=== PATIENT | male | born 1975 | race Caucasian/White ===

== ENCOUNTER 2018-10-04 06:25 | Day surgery (SDC) | payer OTHER ==
[~2018-10-04] VITALS: Ht 180.3 cm; Wt 100.7 kg
[~2018-10-04 06:25] MED LIST: CLARITIN10 M2 PO; FLUCONAZOLE200 MG PO
--- NOTE | 2018-10-04 08:05 | NUR ---
10/04/18 0805 Katelynn Gunderson 0800- PT ARRIVES TO PACU, AROUSABLE VOICE. PT REPORTS NO PAIN OR NAUSEA. PT INSTANTLY BACK TO SLEEP. RESP EVEN AND UNLABORED. PT ON 3L VIA NC OF O2, OXYGEN SAT MID 90'S ON THIS.
--- NOTE | 2018-10-04 10:39 | OR ---
[facility] [address], [place] [address] Signed DATE OF OPERATION: 10/04/2018 SURGEON: Consuelo Little MD PREOPERATIVE DIAGNOSES: 1. Brother with a history of Crohn's disease, age 20. 2. Father with colon cancer in his 30s. 3. Irritable bowel syndrome with constipation and diarrhea. 4. Hemorrhoids with intermittent rectal bleeding. 5. Personal history of colonic polyps. POSTOPERATIVE DIAGNOSES: 1. 5 mm polyps at 45, 32 and 25 cm. 2. A biopsy at 25 cm for a sessile lesion. 3. Random cold biopsies in the right transverse and sigmoid colon. 4. Moderate internal and external hemorrhoids. PROCEDURE PERFORMED: Colonoscopy with hot biopsy. ESTIMATED BLOOD LOSS: None. INDICATIONS: Bishop is a 43-year-old gentleman asked to see me for a followup colonoscopy. He explained to me that his brother was diagnosed with Crohn's disease in his 20s and his father developed colon cancer in his 30s. His father ended up with colostomy bag and around age 49 from the colon cancer. Bishop himself has a personal history of irritable bowel syndrome with constipation and diarrhea. He is known to have hemorrhoids and has even had hemorrhoid surgery. Nevertheless, he does have intermittent rectal bleeding. He says he can feel the hemorrhoids externally. He also has a personal history of colonic polyps. He had a colonoscopy at age 28 and age 35. In the office, I gave him a pamphlet on colonoscopy and we looked at that together along with the risks including, but not limited to gas, bloating, crampy abdominal pain, bleeding, perforation, requiring surgery, and missed diagnosis. We also discussed the need for IV conscious sedation. He had expressed understanding and wished to proceed. PROCEDURE NOTE: Bishop was taken into our endoscopy suite and placed in the left lateral decubitus position. He was given 7 mg of Versed and 100 mcg of fentanyl. A digital rectal exam Electronically Signed By: CONSUELO LITTLE MD 10/04/18 1039 PATIENT NAME: BISHOP HALL OPERATIVE REPORT DATE OF : 75 REPORT #: [id number] PHYSICIAN: CONSUELO LITTLE MD PCP: MICHEAL SOTO PAC REPORT IS CONFIDENTIAL AND NOT TO BE RELEASED WITHOUT AUTHORIZATION [facility] [address], [place] [address] Signed was performed and indeed he does have moderately significant external hemorrhoids. They are quite beefy and I am sure they bleed from time to time. He has good sphincter tone. His prostate gland starting to get a little enlarged and indurated. The adult colonoscope was introduced and advanced all the way around into the cecum under direct visualization of camera without difficulty. His prep was good. The scope was slowly withdrawn. We did not enter the terminal ileum. The above-mentioned polyps were easily removed with the help of a hot biopsy forceps. Although his colon looked unremarkable, we went ahead and took random biopsies out of the right transverse and sigmoid colon because of his brother's history of Crohn's disease. We retroflexed the scope in the rectum and he does have moderate internal hemorrhoid columns as well. After this, the gas was suctioned out and the colonoscope removed. Bishop tolerated the procedure quite well. RECOMMENDATIONS: I will see Bishop back in my office in 7 to 14 days to review his results. At this age, I suspect Bishop will need colonoscopy every 5 years. Consuelo Little MD ALB/MODL /[id number] cc: MD Micheal Mondragon PA Copies: CONSUELO LITTLE MD ~ Electronically Signed By: CONSUELO LITTLE MD 10/04/18 1039 PATIENT NAME: BISHOP HALL OPERATIVE REPORT DATE OF : 75 REPORT #: [id number] PHYSICIAN: CONSUELO LITTLE MD PCP: MICHEAL SOTO PAC REPORT IS CONFIDENTIAL AND NOT TO BE RELEASED WITHOUT AUTHORIZATION
--- NOTE | 2018-10-04 12:10 | NUR ---
PT LAYING IN BED, ALERT, ORIENTED AND SUPPORTED BY HIS . HE HAS HAD SCOPES PREVIOUS, SEEMED PREPARED. EXTENDED A BLESSING, WILL FOLLOW NEEDED
== END 2018-10-04 09:17 | disposition home or self-care (01) ==
LOC: DS 06:25 → OPS 06:25 → DS 06:45 → OPS 09:17
PROVIDERS: Colon & Rectal Surgery
PROC: 0DBE8ZZ Excision of Large Intestine, Via Natural or Artificial Opening Endoscopic (ICD-10-PCS; principal; 2018-10-04 06:45)
DX: K63.5 Polyp of colon (principal); K64.8 Other hemorrhoids; K64.4 Residual hemorrhoidal skin tags; K58.2 Mixed irritable bowel syndrome; Z86.010 Personal history of colon polyps; Z80.0 Family history of malignant neoplasm of digestive organs; Z79.899 Other long term (current) drug therapy
CPT/HCPCS: 99153; G0500; J2250; J3010; J7120

== ENCOUNTER 2020-04-22 09:55 | Day surgery (SDC) | payer OTHER ==
[~2020-04-22] VITALS: Ht 180.3 cm; Wt 99.8 kg
--- NOTE | 2020-04-22 12:18 | NUR ---
1100) up to the bathroom, 0 comeplants 1215) PATIENT ASKING HOW LONG IT WILL BE UNTIL HE GOES. ADVISED HE WILL BE GOING SOON.
--- NOTE | 2020-04-22 13:48 | NUR ---
04/22/20 1348 Sheets,Stormy 1339 PT ARRIVED TO PACU WITH ORAL AIRWAY IN PLACE, PT REACHING AND SPINTING OUT AIRWAY, AIRWAY REMVOED. PT MAINTAINING OWN AIRWAY AND VSS. PT ASLEEP.
--- NOTE | 2020-04-23 06:50 | OR ---
[facility] [address], [place] [address] Signed DATE OF OPERATION: 04/22/2020 SURGEON: Consuelo Little MD PREOPERATIVE DIAGNOSIS: Left lateral bleeding hemorrhoid. POSTOPERATIVE DIAGNOSES: 1. Left lateral bleeding internal and external hemorrhoid. 2. Small to moderate sized right internal hemorrhoid. PROCEDURE: Left lateral internal and external hemorrhoidectomy x1. ESTIMATED BLOOD LOSS: Minimal. 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 He obviously spends a lot of time on his feet. He has been having trouble with bleeding hemorrhoid. He said he has had incision and drainage of thrombosed hemorrhoids in the past. He has been through a colonoscopy back in October 2018. He was found to have a small hyperplastic colonic polyps. He is known to have moderate internal and external hemorrhoids based on that colonoscopy. He finally decided to come and inquire about having the hemorrhoid removed. He had been to his primary care provider, who asked him to come see me with respect to the above. He has been using hydrocortisone cream in the meantime. In the office on physical exam, we can see the prolapsing external hemorrhoid at the left lateral position with an internal component. We did not use anoscope in the office. He was quite confident this was a hemorrhoid that has been bothering him and bleeding. In fact, we can see the irritated internal component when we placed gentle traction just lateral to his hemorrhoid. I had given Bishop booklet on hemorrhoids and we looked at that carefully page by page. He understands that the conservative treatment of hemorrhoids before surgery is same as after surgery. We also discussed the difference between a formal hemorrhoidectomy and banding of internal hemorrhoids. This would obviously require formal hemorrhoidectomy to take the internal and external component together. He understands that we suture the internal component, but not the external component. That will heal in secondarily. He understands there is risk including, but not limited to bleeding, infection, scarring, change in contour of the skin, anal stenosis, and recurrent hemorrhoids. He had expressed understanding and wished to proceed. Electronically Signed By: CONSUELO LITTLE MD 04/23/20 0650 PATIENT NAME: BISHOP HALL OPERATIVE REPORT DATE OF : 75 REPORT #: [id number] PHYSICIAN: CONSUELO LITTLE MD PCP: MICHEAL SOTO [facility] REPORT IS CONFIDENTIAL AND NOT TO BE RELEASED WITHOUT AUTHORIZATION [facility] [address], [place] [address] Signed DESCRIPTION OF PROCEDURE: Bishop was taken in the operating room and placed in a prone marily-knife position under general endotracheal tube anesthesia. Appropriate padding and monitoring were placed. He had been given preoperative antibiotics along with subcutaneous heparin. SCDs were utilized. He was then prepped and draped in the usual sterile fashion. It was easy to place traction in the left lateral side of his anus and prolapse the external and internal hemorrhoid. 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 Half-earl retractor had been inserted and we examined the full circumference of the anal canal. He also has small to moderate-sized internal hemorrhoid in the right lateral position. It is a little irritated, but certainly is not the one that was bothering him what we discussed in the office. After this, we placed our 2-0 chromic suture at the apex of the internal component. The internal and external components were then carefully excised with the help of the cautery with direct visualization of the underlying muscle. The internal component was closed then with a running locked 2-0 chromic suture. Once we got out the external component, the suture was tied and the external component was left open to heal in secondarily. Local anesthetic was then injected circumferentially around the anus for a field block. The area was irrigated and suctioned out until clear. Dry gauze and mesh underwear were then applied. Bishop was rotated in the supine position on his hospital bed, weaned from his anesthesia, extubated in the OR, and taken to recovery room in stable condition. Consuelo Little MD ALB/MODL /[id number] cc: Micheal Little MD Copies: CONSUELO LITTLE MD ~ Electronically Signed By: CONSUELO LITTLE MD 04/23/20 0650 PATIENT NAME: BISHOP HALL OPERATIVE REPORT DATE OF : 75 REPORT #: [id number] PHYSICIAN: CONSUELO LITTLE MD PCP: MICHEAL SOTO PAC REPORT IS CONFIDENTIAL AND NOT TO BE RELEASED WITHOUT AUTHORIZATION
--- NOTE | 2020-04-24 12:53 | PATH ---
[facility] [address], [place] [address] Signed SPECIMEN(S): A LEFT LATERAL HEMORRHOID SPECIMEN SOURCE: A. LEFT LATERAL HEMORRHOID CLINICAL HISTORY: Hemorrhoids. FINAL PATHOLOGIC DIAGNOSIS: Hemorrhoid, left lateral, excision: - Reactive rectal and anal mucosa with underlying dilated submucosal vessels with thromboses, consistent with hemorrhoid. NAL:cml:C2NR MICROSCOPIC EXAMINATION: Histologic sections of all submitted blocks are examined by light microscopy. These findings, together with the gross examination, support the pathologic diagnosis. GROSS DESCRIPTION: The specimen, labeled "RM," and designated on the requisition "left lateral hemorrhoid," is received in formalin and consists of one piece of irregular, hemorrhagic tissue with pink-dowd skin and a brown-dowd mucosal surface (3.9 x 3.4 x 1.0 cm). The specimen is serially sectioned to reveal a markedly hemorrhagic cut surface with prominent vasculature. Super[employer] sections are submitted in cassette (A1). AC (under the direct supervision of a pathologist) The Gross Description was prepared using a voice recognition system. The report was reviewed for accuracy; however, sound-alike word errors, addition and/or deletions may occur. If there is any question about this report, please contact Client Services. PERFORMING LABORATORY: The technical component was performed by [employer], [address] [place] [id number] (Moto Mix Operator: Linda Lo MD; CLIA# [id number]). [facility], [address] [address] (CLIA# [id number]). Diagnostician: Kathryn Coburn MD PATIENT NAME: BISHOP HALL PATHOLOGY DATE OF : 75 REPORT #: [id number] PHYSICIAN: NOV[facility]TE PATHOLOGY PCP: MICHEAL SOTO PAC REPORT IS CONFIDENTIAL AND NOT TO BE RELEASED WITHOUT AUTHORIZATION [address] [place], [place] [address] Signed Pathologist Electronically Signed 04/24/2020 Copies: ~ PATIENT NAME: BISHOP HALL PATHOLOGY DATE OF : 75 REPORT #: [id number] PHYSICIAN: [facility] PCP: MICHEAL SOTO PAC REPORT IS CONFIDENTIAL AND NOT TO BE RELEASED WITHOUT AUTHORIZATION
== END 2020-04-22 15:15 | disposition home or self-care (01) ==
LOC: DS 09:55
PROVIDERS: Colon & Rectal Surgery
PROC: 06BY0ZC Excision of Hemorrhoidal Plexus, Open Approach (ICD-10-PCS; principal; 2020-04-22 12:15)
DX: K64.8 Other hemorrhoids (principal); K64.5 Perianal venous thrombosis; K21.9 Gastro-esophageal reflux disease without esophagitis; Z79.899 Other long term (current) drug therapy
CPT/HCPCS: 00902; J0330; J0690; J1100; J1885; J2250; J2405; J2704; J2765; J3010; J7121

== ENCOUNTER 2020-06-23 21:45 | Observation (INO) | payer OTHER ==
[~2020-06-23] VITALS: Ht 180.3 cm; Wt 99.2 kg
--- NOTE | 2020-06-24 01:08 | NUR ---
PATIENT ARRIVED FROM ED VIA STRETCHER. ASSESSMENT COMPLETE, VS COMPLETE. ORIENTED TO ROOM. TRANSFERED SELF TO BED, C/O NAUSEA AND DIZZINESS. UNABLE TO OPEN EYES OR LIFT HEAD FROM BED. EMESIS BAG IN HAND. MD PHONED, NEW ORDERS RECEIVED AND REPEATED BACK TO VERIFY, SEE EMAR.
--- NOTE | 2020-06-24 01:45 | NUR ---
ADMINISTERED NEW PRN NAUSEA MED, PT HUNCHED OVER IN BED, ASSISTED TO REPOSITION. IVF INFUSING WNL, CALL LIGHT IN REACH. WILL CONTINUE FREQUENT CHECKS
--- NOTE | 2020-06-24 02:41 | NUR ---
ROUNDED ON PATIENT, ASLEEP IN BED WITH HOB ELEVATED. BREATHING EVEN AND UNLABORED. WILL CONTINUE FREQUENT CHECKS.
--- NOTE | 2020-06-24 03:59 | NUR ---
ROUNDED ON PATIENT, ASLEEP IN BED. HOB ELEVATED. CALL LIGHT IN REACH.
--- NOTE | 2020-06-24 05:05 | NUR ---
PHONE CALL FROM pt'S . UPDATED ON pt STATUS, RESTING IN BED.
--- NOTE | 2020-06-24 05:10 | NUR ---
PATIENT REPORTS LACK OF SLEEP THIS SHIFT. PRN SLEEP AIDS ADMINISTERED, PT STATES NOT EFFECTIVE, BUT RESTED IN BED THROUGHOUT SHIFT. LUNG SOUNDS CLEAR, HRR, TOLERATING 1800ML FLUID RESTRICTION WELL. SBA TO BR USING CANE, STEADY GAIT. A+O, VSS. MINIMAL EDEMA TO BLE. ON TELE #4. USES CALL LIGHT APPROPRIATELY.
--- NOTE | 2020-06-24 05:20 | NUR ---
PATIENT ABLE TO SLEEP THIS SHIFT AFTER PRN NAUSEA MEDICATION ADMINISTERED. VSS, A+O. PATIENT IN BED, HOB ELEVATED, EMESIS BAG IN HAND BUT HAS NOT VOMITED THIS SHIFT. LUNG SOUNDS CLEAR, HRR, BTA. IVF INFUSING WNL. HAS NOT USED CALL LIGHT, BUT FREQUENT CHECKS COMPLETED.
--- NOTE | 2020-06-24 05:56 | NUR ---
PT CALLED, NEEDED URINAL. SBA, SLOWLY ABLE TO SIT UP, GUARDED, STATED THAT NAUSEA WAS BETTER, STILL DIZZY, HOWEVER, MUCH IMPROVED. ABLE TO LIFT HEAD AND LOOK OUTSIDE. VOIDED WITHOUT DIFFIULITY, REQUESTED AND RECEIVED ICE WATER. SITTING AT THE EDGE OF BED WITH PRIMARY RN
--- NOTE | 2020-06-24 06:06 | NUR ---
PATIENT UP TO VOID, VITALS AND I/O'S COMPLETE. PT STATES NO NAUSEA BUT STILL DIZZY, DENIES NEED FOR PRN MEDICATION AT THIS TIME. ICE WATER AND ICE CHIPS PROVIDED. CALL LIGHT WITHIN REACH. NO OTHER NEEDS AT THIS TIME.
--- NOTE | 2020-06-24 07:25 | NUR ---
REPORT RECEIVED FROM PAULINE HERNÁNDEZ. PT RESTING ON RIGHT SIDE IN BED. PT CONTINUES TO REPORT DIZZINESS AND NAUSEA. PT VERY SENSITITVE TO NOISE, LIGHT AND SUDDEN MOVEMENT. PT REPORTS HE IS UNSURE IF THE NAUSEA IS FROM THE DIZZINESS OR "BECAUSE I HAVEN'T EATEN OR DRINKEN ANYTHING FOR A WHILE." PT REQUESTS CRACKERS, JELLO OFFERED WITHIN CLEAR LIQUID DIET. PT AGREEES TO JELLO, PROVIDED REQUESTED. NO ADDTIONAL REQUESTS OR COMPLAINTS AT THIS TIME. CALL LIGHT WITHIN REACH. LIGHTS DIMMED. DOOR CLOSED FOR MINIMUM STIMULATION.
--- NOTE | 2020-06-24 07:44 | NUR ---
PATIENT AWAKE AND WHITE BOARD UPDATED. CALL LIGHT WITHIN REACH. NO FURTHER NEEDS AT THIS TIME.
--- NOTE | 2020-06-24 07:45 | NUR ---
MORNING ASSESSMENT DUE. PT REPORTING NAUSEA. PT RESTINGING IN SEMIFOWLERS POSITION ON RIGHT SIDE. PT REPORTS NAUSEA "COMES IN WAVES" AND IS "REALLY STRONG" AT THIS TIME. 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 PT STATES HE HAS NEVER HAD A FEVER BUT HAS HAD 3 EPISODES OF EMESIS IN THE LAST 2 DAYS. PT UNWILLING TO GET UP OR SIT UP RELATED TO DIZZINESS AND INCREASED NAUSEA WITH ANY MOVEMENTS. PT VERY SENITTIVE TO LIGHT, MOVEMENT, AND SOUND. VITALS TAKEN. ASSESSMENT DONE. PT ABLE TO TRACK WITH EYES NORMALLY, NO NYSTAGMAS NOTED, HOWEVER PT REPORTS "TRYING TO MOVE MY EYES MAKES ME MORE DIZZY." PT HAS ONLY TAKEN ONE BITE OF THE JELLOW PROVIDED. PRN NAUSA MEDICATION GIVEN. PT CONTINUES RESTING IN SEMI FLOWLERS POSITION WITH EYES CLOSED. CALL LIGHT WITHIN REACH. PT ENCORUAGED TO CALL IF NAUSEA HAS NO SUBSIDED WITH MEDICATION WITHIN 30 MINUTES. BED RAILS UP.
--- NOTE | 2020-06-24 08:18 | NUR ---
TORCH SHEARER CALLS THIS RN TO BEDSIDE STATING PT IS VOMITING. THIS RN TO ROOM. 250ML OF LIQUID BROWN EMESIS NOTED. NO ODER NOTED IN EMESIS. PT REPORTS HE FEELS "A LITTLE" BETTER AFTER EMESIS FOR "JUST A FEW MINUTES." PT CONTINUES TO REPORTS SEVERE DIZZINESS. PT STATES HE THINKS THE DIZZINESS IS CAUSING THE EMESIS. PHENEGRAN GIVEN PER PROTOCOL. BRISK BLOOD RETURN NOTED FROM IV EVERY 1 MINUTE DURING PUSH. PT DENIES ANY STINGING OR PAIN AT IV SITE. LINENES CHANGED. GOWN CHANGED. PT BACK TO BED. PT DENIES ADDITIONAL REQUESTS OR COMPLAINTS. CALL LIGHT WITHIN REACH. AT BEDSIDE.
--- NOTE | 2020-06-24 09:44 | NUR ---
THIS RN TO ROOM TO CHECK ON PT. PT RESTING IN BED WITH EYES CLOSED. PT AWAKENS TO MOVEMENT IN ROOM. PT REPORTS NAUSEA HAS RESOLVED BUT CONTINUES TO REPORT SEVERE DIZZINESS. VITALS TAKEN. PT DENIES NEED TO VOID AND STATES "I JUST CAN'T STAND UP RIGHT NOW." PTS AT BEDSIDE. NO ADDITONAL REQUESTS OR COMPLAINTS AT THIS TIME. CALL LIGHT WIHTIN REACH. BED RAILS UP.
--- NOTE | 2020-06-24 10:40 | NUR ---
Attempted to see Howard this am. He is nauseated and does not want a visit today per aid.
--- NOTE | 2020-06-24 10:51 | NUR ---
THIS RN TO ROOM TO CHECK ON PT. PT RESTING ON RIGHT SIDE WITH EYES CLOSED. RESPIRATIONS EVEN AND UNLABORED. MRI SCREENING FORM COMPLETE. PT AND UPDATED ON PLAN OF CARE. PT ANTICIPTING MRI SCAN AT 1300. NO ADDITIONAL REQUESTS OR COMPLAINTS AT THIS TIME. PT CONTINUES TO DENY NAUSEA BUT REPORT DIZZINESS. PT BACK TO RESTING WITH EYES CLOSED. BED RAILS UP. CALL LIGHT WITHIN REACH.
--- NOTE | 2020-06-24 11:34 | NUR ---
THIS RN TO ROOM TO CHECK ON PT. PT REPORTS NAUSEA CONTINUES TO BE RESOLVED BUT DIZZINESS CONTINUES. MEDICATION GIVEN (SEE EMAR). NEW FLUIDS HUNG PER MD ORDER. PT UPDATED ON PLAN OF CARE AND VERBALIZES UNDERSTANDING. PT UP TO SITTING ON EDGE OF BED TO USE URINAL. PT BACK TO BED. PT DENIES ADDTIONAL REQUESTS OR COMPLAINTS. PTS AT BEDSIDE. CALL LIGHT WTIHIN REACH. BED RAILS UP.
--- NOTE | 2020-06-24 12:42 | NUR ---
NOON ASSESSMENT DUE. PT RESTING ON LEFT SIDE IN BED, AWAKENS TO VOICE. PT REPORTS THE DIZZINESS IS BETTER AFTER PRN MEDICATION STATING "IT'S BETTER WHEN I'M LYING DOWN BUT IF I TRY TO MOVE THE ROOM IS STILL SPINNING. PT DENIES NASUEA AND PAIN AT THIS TIME. ASSESSMENT DONE. PT UPDATED ON PLAN OF CARE AND IS ANTICIPATING MRI AT 1300. EKG LEADS REMOVED FROM BODY. NO ADDITIONAL REQUESTS OR COMPLAINTS AT THIS TIME. CALL LIGHT WITHIN REACH. BED RAILS UP.
--- NOTE | 2020-06-24 13:12 | NUR ---
MRI TECHINITIAN ARRIVED TO TAKE PT FOR IMAGING. IV SALINE LOCKED. SCOPALAMINE PATCH REMOVED FROM LEFT EAR PER MRI PROTOCOL ( TOLD TO THIS RN BY TECHNITIAN). PT TRANSFERS SELF TO WHEELCHAIR REPORTING SOME DIZZINESS BY "NOT BAD THIS MORNING." PT DENIES NAUSEA. WARM BLANKET PROVIDED. EMESIS BAG SENT WITH PT INCASE OF NEED. NO ADDITIONAL REQUESTS OR COMPLAINTS AT THIS TIME.
--- NOTE | 2020-06-24 13:45 | NUR ---
PT RETUNRED FROM . PT UP TO STAND TO URINATE. PT REPORTS HE IS FEELING "A LITTLE BETTER." PT RATES DIZZINESS MODERATE AT THIS TIME. PT DENIES NAUSEA. PT BACK TO BED. PT REPORTS HE IS NOW ABLE TO "LOOK UP A LITTLE" WITH THE ROOM SPINNING LESS THAN BEFORE. NO ADDTIONAL REQUESTS OR COMPLAINTS. WATER REFILLED. CALL LIGHT WITHIN REACH. BED RAILS UP.
--- NOTE | 2020-06-24 14:08 | NUR ---
PT TAKEN TO IMAGING FOR MRI, WILL FOLLOW UPON RETURN
--- NOTE | 2020-06-24 14:31 | NUR ---
Entered pt room for vitals and Is&Os. VSS. Pt sitting up in bed, room low light, curtains closed. Pt reports no pain and no nausea currently, just dizziness. Pts fluids restarted, LR in Dextrose at 125ml/hr. Pt reports no further needs at this time. Pt left sitting up in bed, call light and side table within reach, at the bedside.
--- NOTE | 2020-06-24 16:13 | NUR ---
AFTERNOON ASSESSMENT DUE. PT RESTING IN BED. PT REPORTS MODERATE DIZZINESS AND DENIES NAUSEA. PT REPORTS PRESSURE IN SINUSES AND 2/10 HEADACHE. PT STATE HE USUALLY TAKES ZYRTEC AT HOME AND WOULD LIKE SOME TYLENOL. PRESSURE PLACED TO FACIAL AND FRONTAL SINUSES WITH NO INCREASED PAIN. MD CONSULTED, NEW ORDERS PLACED. MEDICATION GIVEN (SEE MAR). PT ABLE TO TRACK PEN LIGHT WITH EYES BUT WITH ANY MOVEMENT OF HEAD DIZZINESS WORSENS. PT CONTINUES TO REPORT SENSITIVITY TO LIGHT, SOUND AND SUDDEN MOVEMENT. PT REPORTS DOUBLE VISION IS PRESENT WHEN HE MOVES OR SITS UP, BUT NOT WHILE LYING STILL. PT ABLE TO TOLERATE JELLO WITH NO INCREASED NAUSEA AND REQUESTS BROTH AND 7-UP, PROIVDED REQUESTED. NO ADDITIONAL REQUESTS OR COMPLAINTS. CALL LIGHT WITHIN REACH. AT BEDSIDE.
--- NOTE | 2020-06-24 17:04 | NUR ---
PT HERE FOR EXTREME VERTIGO WITH NAUSEA AND VOMITING. PT UNABLE TO AMBULATE THIS SHIFT. UP WITH 1 PERSON ASSIST. PHYSICAL THERAPY ATTMEPTED, PT REPORTS SEVERE DIZZINESS WITH ANY HEAD MOVEMENT. PRN NAUSEA MEDICATIONS GIVEN FOR EMESIS AND NAUSEA X1. PRN VALIUM GIVEN X1 FOR DIZZNESS. IMPROVEMENT THROUGHOUT SHIFT FROM SEVER TO MODERATE DIZZINESS. MRI COMPLETED THIS SHIFT. NEW MEDICATIONS ADDED FOR SINUS PRESSURE AND HEADACHES. SCOPALAMINE PATCH REMOVED FOR MRI, NOT REPLACED AT THIS TIME. PT TOLERATING MINMAL PO INTAKE WITH CLEAR LIQUID DIET. AT BEDSIDE FOR MOST OF SHIFT. PT VOIDING QUANTITY SUFFICIENT. PT USES CALL LIGHT APPROPRIATLY.
--- NOTE | 2020-06-24 18:28 | NUR ---
THIS RN TO ROOM TO CHECK ON PT. PT RESTING IN BED WITH EYES OPEN AND REPORTS HE IS NOW ABLE TO LOOK UP WITH OUT SEVERE DIZZINESS. PT CONTINUES TO RATE DIZZINESS AT MODERATE LEVEL. PT REPORTS HEADACHE HAS RESOLVED. PT STATES HE CAN STILL FEEL PRESSURE IN HIS SINUSES BUT "IT IS LESS INTENSE." PT WAS ABLE TO TOLERATE CHICKEN BROTH AND 7-UP WITH NO NAUSEA. PT ASKS IF HE CAN GO FOR A WALK LATER, PT ENCROUAGED TO WALK BUT TOLD TO BE SURE TO CALL NURSING STAFF TO WALK WITH HIM IN CASE IF INCREASED DIZZINESS. PT VERBALIZES UNDERSTANDING. MEDHAT PROVIDED PER PT REQUEST. NO ADDITIONAL REQUESTS OR COMPLAINTS. CALL LIGHT WITHIN REACH. AT BEDSIDE.
--- NOTE | 2020-06-24 19:13 | NUR ---
IN ROOM FOR REPORT, PT IS RESTING IN BED WITH IN ROOM. CALL LIGHT IS CLOSE AND IV FLUID IS INFUSING FINE.
--- NOTE | 2020-06-24 21:15 | NUR ---
IN ROOM TO ASSESS PT. ALSO ASSISTED PT TO RESTROOM AND BACK TO BED. HE REPORTS LITTLE DIZZINESS AND NO NAUSEA. PT WANTED TO TAKE VALIUM BECAUSE IT HELPED SO MUCH TODAY. HE IS TOLERATING CLEAR LIQUIDS, FRESH ICEWATER PROVIDED. TALKED WITH PT ABOUT ADVANCING DIET SLOWING. HE HAS CRACKERS AT THE BEDSIDE. HE DENIES FURTHER NEEDS AT THIS TIME. CALL LIGHT IS CLOSE AND IV IS INFUSING FINE.
--- NOTE | 2020-06-24 23:46 | NUR ---
PT IS RESTING WITH EYES CLOSED, RR IS EVEN AND NONLABORED. CALL LIGHT IS CLOSE AND CPOX READS 91% ON RA. TUBE FEEDING IS INFUSING AT 50MLS/HR. BED ALARMIS ON.
--- NOTE | 2020-06-24 23:49 | NUR ---
PT IS RESTING WITH EYES CLOSED, RR IS EVEN AND NONLABORED. IV IS INFUSING FINE. CALL LIGHT IS CLOSE.
--- NOTE | 2020-06-25 01:31 | NUR ---
PT WAS UP TO USE RESTROOM WITH HELP OF REBEKAH EDEN. HE IS NOW BACK IN BED. HE DENIES DIZZINESS, LIGHT SENSITIVITY, SOUND SENSITIVITY AND NAUSEA. PT REPORTS THE ONLY SYMPTOM THAT IS BOTHERSOME IS HIS BALANCE FEELS OFF AT THIS TIME. HE DID REQUEST PUEDOEPHEDRINE FOR NASAL CONGESTION WHICH WAS ADMINISTERED. PT DENIES FURTHER NEEDS AT THIS TIME. CALL LIGHT IS CLOSE.
--- NOTE | 2020-06-25 03:29 | NUR ---
PT IS RESTING WITH EYES CLOSED, RR IS EVEN AND NONLABORED. CALL LIGHT IS CLOSE AND IV IS INFUSING FINE.
--- NOTE | 2020-06-25 05:10 | NUR ---
ADMINISTERED VALIUM AND TYLENOL. PT REPORTS A HEADACHE 03/11 AND STATES HIS BALANCE HAS IMPROVED. HE DENIES NAUSEA. IV IS INFUSING FINE. VS & I&O'S ENTERED. PT HAS FRESH ICEWATER AND IS EATING SOME CRACKERS. PT DENIES FURTHER NEEDS. CALL LIGHT IS CLOSE.
--- NOTE | 2020-06-25 05:17 | NUR ---
PT REPORTS IMPROVEMENT OVER SHIFT. HE HAS NO NAUSEA OR LIGHT/SOUND SENSITIVITIES ANY LONGER. HE WAS FEELING THAT HIS BALANCE IS OFF BUT NOW REPORTS NO BALANCE ISSUES. HE DID HAVE A HEADEACHE AND SINUS CONGESTION. PT IS TOLERATING CRACKERS AND FLUIDS/ADAT. D5LR IS INFUSING AT 125MLS.
--- NOTE | 2020-06-25 07:18 | NUR ---
Entered pt room for bedside shift report. Pt was lying in bed, eyes closed, breathing regular and unlabored. According to report, the pts dizziness and nausea have subsided. Pt had an uneventful night. Pt had mild headache this morning and got acetamenophen around 0500 and went back to sleep. Seems likely that he will DC sometime today. Plan is to continue monitoring dizziness, nausea, and pain. Pt left lying in bed, appearing comfortable, side rails up and call light within reach.
--- NOTE | 2020-06-25 09:05 | NUR ---
PT READY FOR SHOWER. COMBER SETTER CALLS THIS RN TO ROOM TO ASSIST WITH SALINE LOCK. PT REPORTS DIZZINESS AND NAUSEA HAVE RESOLVED THIS MORNING. PT DENIES PAIN AT [facility]. IV SALINE LOCKED AT THIS TIME. PT UP WITH COMBER SETTER FOR SHOWER. NO ADDITIONAL REQUESTS OR COMPLAINTS. CALL LIGHT WITHIN REACH.
--- NOTE | 2020-06-25 09:49 | NUR ---
Entered pt room for morning med pass and assessment. Pt had just showered and was sitting up in chair, at chair side. Pt reports 0/10 pain, no nausea, and no dizziness at all. Pt reports that the last time he had dizziness was this morning early "maybe sometime around 2am possibly". Pt was able to eat breakfast ("alvarado and malagasy muffin") and take morning med without difficulty. Pt assessment done, see charting, VSS, all assessments WNL. Lungs clear, heart regular and clear s1 s2. Pt reports no further needs at this time. Pt left with [facility] Physical Therapist for ambulation. Pt in room.
--- NOTE | 2020-06-25 10:00 | NUR ---
Spoke with Bhaskar. He states he lives in [place] with his Denice. They live in a trilevel home. He uses 2 floors. Steps and stairs have rails. is present and will assist if needed. 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 They deny needs to go home. Pt plans on dc to home today after seeing Dr. Cristobal.
--- NOTE | 2020-06-25 10:48 | NUR ---
Entered pt room for rounding. Pt sitting up in chair, table over his lap, call light within reach. Pt reports no pain, dizziness, nausea or further needs at this time. Pt left exactly as he was found.
[2020-06-25] MEDS ORDERED: ZYRTEC10 MG PO (11:00)
[2020-06-25] MEDS ORDERED: IBU-200200 MG PO (11:01)
[2020-06-25] MEDS ORDERED: TYLENOL EXTRA500 MG PO (11:01)
--- NOTE | 2020-06-25 11:03 | NUR ---
MED REC COMPLETE
[2020-06-25] MEDS ORDERED: MECLIZINE HCL25 MG PO (11:57)
--- NOTE | 2020-06-25 12:06 | NUR ---
PT READY FOR DISCHARGE. PT CONTINUES TO DENIES PAIN, NAUSEA, AND DIZZINESS. MEEK CRESPO TAKES VITALS AND DC'D IV PER PROTOCOL, GAORALIAE AND SHREYA APPLIED. PT DRESSES SELF, STEADY ON FEET WITH STAND BY ASSIST. PHARMACIST TO BEDSIDE TO REVIEW MEDIACTIONS WITH PT. PT VERBALIZES UNDERSTANDING OF MEDICATIONS AND STATES HIS QUESTIONS HAVE BEEN ANSWERED. DISCHARGE INSTRUCTIONS REVIEWED WITH PT. PT VERBALIZES UNDERSTANDING OF INSTRUCTIONS, MEDICATIONS, AND FOLLOW UP APPOINTMENT. PT EATING LUNCH AND STATES HE WILL CALL WHEN HE IS FINISHED AND READY TO LEAVE. NO ADDITIONAL REQUESTS OR COMPLAINTS.
--- NOTE | 2020-06-25 12:20 | NUR ---
PT CALL LIGHT ON. PT STATES HE IS READY FOR DISCHARGE. PT DECLINES WHEELCHAIR FROM MED/SURG FLOOR. PT AMBULATED FROM UNIT. PT STATES HE HAS NO ADDITIONAL REQEUSTS OR CONCERNS AT THIS TIME.
--- NOTE | 2020-06-25 12:27 | NUR ---
PT ALERT, ORIENTED AND SITTING IN CHAIR. PT IS WAITING FOR DC, SAID HE FEELS SO MUCH BETTER. HAS NEVER HAD THESE SYMPTOMS BEFORE. HAD GOOD VISIT, GAVE BLESSING AND WILL FOLLOW NEEDED
== END 2020-06-25 12:20 | disposition home or self-care (01) ==
LOC: ED 21:45 → MS 21:47
PROVIDERS: ADMIT Internal Medicine; ATTEND Internal Medicine
DX: H83.09 Labyrinthitis, unspecified ear (principal); J32.0 Chronic maxillary sinusitis; J30.9 Allergic rhinitis, unspecified; B96.89 Other specified bacterial agents as the cause of diseases classified elsewhere; E87.6 Hypokalemia; K58.0 Irritable bowel syndrome with diarrhea; Z20.828 Contact with and (suspected) exposure to other viral communicable diseases
CPT/HCPCS: 36415; 70450; 70551; 80048; 80053; 85025; 96361; 96374; 96375; 96376; 97112; 97161; 99285-25; C9803; G0378; J2405; J2550; J2765; J3480; J7030; J7121

== ENCOUNTER 2023-05-03 21:40 | Emergency (ER) | payer OTHER ==
[~2023-05-03] VITALS: Ht 180.3 cm; Wt 109.4 kg
--- OUTSIDE RECORDS SUMMARY | ~2023-05-03 | XMS | Continuity of Care Document ---
Demographics + + + | Address | [address] | | | [place] [address] | + + + | Preferred Language | Unknown | + + + | Marital Status | | + + + | Advent Affiliation | Unknown | + + + | Race | White | + + + | Ethnic Group | Unknown | + + + Author + + + | Author | [facility] | + + + | Organization | [facility] | + + + | Address | [address] | | | [place] [address] | + + + | Phone | | + + + Care Team Providers + + + + | Care Tabulating Machine Mechanic Name | Role | Phone | + + + + Unavailable | Unavailable | + + + + Allergies and Intolerances + + + + + + | date | description | facility | reaction | severity | + + + + + + | (no date) | No Known | [facility] | (no reaction) | (no severity) | | | Allergies | | | | + + + + + + Encounters No information. Functional Status No information. Immunizations No information. Medications No information. Problems No information. Procedures No information. Results/Labs No information. Social History No information. Vital Signs No information."
--- OUTSIDE RECORDS SUMMARY | ~2023-05-03 | XMS | Continuity of Care Document ---
Demographics + + + | Address | [address] | | | [place] [address] | + + + | Preferred Language | Unknown | + + + | Marital Status | | + + + | Confucianist Affiliation | Unknown | + + + | Race | White | + + + | Ethnic Group | Unknown | + + + Author + + + | Author | [facility] | + + + | Organization | [facility] | + + + | Address | [address] | | | [place] [address] | + + + | Phone | | + + + Care Team Providers + + + + | Care Emc Storage Architect Name | Role | Phone | + [...]
[~2023-05-03 21:40] MED LIST changes: +IBU-200200 MG PO; +MECLIZINE HCL25 MG PO; +TYLENOL EXTRA500 MG PO; +ZYRTEC10 MG PO
[2023-05-03] MEDS ORDERED: CLARITIN10 MG PO (22:28)
[2023-05-04] MEDS ORDERED: HYDROCODON-ACE1 EA10 PO (01:32)
[2023-05-04 01:45] VITALS: BP 157/109
== END 2023-05-04 01:45 | disposition home or self-care (01) ==
LOC: ED 21:40
DX: K63.89 Other specified diseases of intestine (principal); K55.069 Acute infarction of intestine, part and extent unspecified
CPT/HCPCS: 36415; 74177; 80053; 81003; 83690; 85025; 99284-25; A9270; J7030; Q9967

== ENCOUNTER 2024-07-20 20:58 | Emergency (ER) | payer OTHER ==
[~2024-07-20] VITALS: Ht 180.3 cm; Wt 88.6 kg
[~2024-07-20 20:58] MED LIST changes: +CLARITIN10 MG PO; +HYDROCODON-ACE1 EA10 PO
[2024-07-20] MEDS ORDERED: SODIUM CHLORIDE 0.9% 1,000 ML IV ONE (21:30)
[2024-07-20] MEDS ORDERED: ondansetron HCL 4 MG/2 ML VIAL IV ONE (21:30)
[2024-07-20] MEDS ORDERED: MORPHINE SULFATE 4 MG/ML VIAL IV ONE (21:30)
[2024-07-20 21:45] LABS: BASOPHILS 0.5 % (0-2); EOSINOPHILS 0.2 % (0-6); HEMATOCRIT 43.7 % (35.0-50.0); HEMOGLOBIN 14.5 g/dL (12.0-18.0); LYMPHOCYTES 6.6 % (24-44); MCH 26.1 (27-36); MCHC 33.2 g/dl (30-36); MCV 78.7 fl (81-99); MONOCYTES 4.2 % (0-12); NEUTROPHILS 88.5 % (39-80); PLATELET COUNT 346 K/uL (140-440); RBC 5.55 M/ul (4.3-5.7); RDW 14.8 (10.5-15.0)
[2024-07-20 21:59] LABS: ALBUMIN 3.9 g/dL (3.4-5.0); ALBUMIN/GLOBULIN RATIO 1.03 (1.1-2.4); ANION GAP 17.7 (7-21); BILIRUBIN, TOTAL 0.6 ng/dL (0.2-1.0); BUN/CREATININE RATIO 11.92 (6.0-28.6); CALCIUM 9.2 mg/dL (8.5-10.1); CREATININE, SERUM 1.51 mg/dL (0.70-1.30); POTASSIUM 3.7 mmol/L (3.5-5.1); PROTEIN, TOTAL 7.7 g/dL (6.4-8.2)
[2024-07-20 22:44] LABS: BILIRUBIN, URINE NEGATIVE (negative); BLOOD/HGB, URINE MODERATE (Negative); KETONE, URINE TRACE (Negative); LEUK ESTERASE, URINE NEGATIVE (negative); NITRITE, URINE NEGATIVE (negative)
[2024-07-20] MEDS ORDERED: HYDROmorphone HCL 1 MG/ML SYR IV PRN (23:00)
[2024-07-20] MEDS ORDERED: droPERidol 5 MG/2 ML VIAL IV ONE (23:00)
[2024-07-20 23:01] LABS: BACTERIA, URINE RARE /hpf (negative); CRYSTALS, URINE NONE SEEN (0-1+); EPITHELIAL CELLS, URINE NONE SEEN /lpf (0-1+); RED BLOOD CELLS, URINE 21-40 /hpf (0-5)
[2024-07-20 23:02] LABS: CASTS, URINE NONE SEEN \\lpf; COLLECTION TYPE, URINE CLEAN CATCH; REFLEX CULTURE, URINE No (No)
[2024-07-20] MEDS ORDERED: ONDANSETRON ODT8 MG PO (23:39)
[2024-07-20] MEDS ORDERED: PERCOCET 5-3251 EACH PO (23:39)
[2024-07-20] MEDS ORDERED: FLOMAX0.4 MG PO (23:39)
[2024-07-20] MEDS ORDERED: CIPRO500 MG PO (23:39)
[2024-07-20] MEDS ORDERED: TAMSULOSIN HCL 0.4 MG CAP PO ONE (23:45)
[2024-07-20] MEDS ORDERED: OXYCODONE/ACETAMINOPHEN 1 TAB HOME.PACK PO ONE (23:45)
[2024-07-20] MEDS ORDERED: CIPROFLOXACIN 500 MG TAB PO ONE (23:45)
[2024-07-20] MEDS ORDERED: ONDANSETRON 4 MG HOME.PACK SL ONE (23:45)
[2024-07-21 00:01] VITALS: BP 155/96
== END 2024-07-21 00:01 | disposition home or self-care (01) ==
LOC: ED 20:58
PROVIDERS: Family Medicine
DX: N13.2 Hydronephrosis with renal and ureteral calculous obstruction (principal)
CPT/HCPCS: 36415; 74177; 80053; 81001; 83690; 85025; 96361; 96375; 99284-25; A9270; J1790; J2270; J2405; J7030; Q9967